=== PATIENT | female | born 1965 | race Hispanic/Latino ===

== ENCOUNTER 2022-01-20 10:00 | Emergency (ER) | payer OTHER ==
[~2022-01-20] VITALS: Ht 165.1 cm; Wt 126.1 kg
[2022-01-20] MEDS ORDERED: ZITHROMAX250 MG PO (13:09)
== END 2022-01-20 13:20 | disposition home or self-care (01) ==
LOC: FSED 10:17
DX: R05.9 Cough, unspecified (principal); J20.9 Acute bronchitis, unspecified; J02.9 Acute pharyngitis, unspecified
CPT/HCPCS: 83518; 87400; 99283